=== PATIENT | male | born 1985 | race Caucasian/White ===

== ENCOUNTER → 2023-07-30 16:05 | Outpatient (CLI) | payer OTHER, SELFPAY ==
--- NOTE | 2023-07-30 16:08 | DI.MRI.S_ITS ---
PROCEDURE: MR KNEE RT WO CON INDICATIONS: Pain in right knee TECHNIQUE: Noncontrast sagittal PD fast spin echo and T2 fast spin echo with fat saturation, sagittal 3-D FLASH with fat saturation; coronal T1 spin echo and PD fast spin echo with fat saturation, and axial PD fast spin echo with fat saturation through the knee. COMPARISON: None. FINDINGS: Image quality: Excellent. Menisci: The medial and lateral menisci demonstrate normal morphology and internal signal. The meniscal root ligaments appear intact. Cruciate ligaments: Intrasubstance T2 hyperintense signal within mildly thickened ACL is seen. The PCL is intact. Medial structures: The medial collateral ligament appears intact. Visualized portions of the pes anserinus tendons appear normal. No abnormal bursal fluid. Lateral structures: The lateral collateral ligament, long and short heads of the biceps femoris tendon appear intact. The popliteus tendon appears normal. Iliotibial band appears normal. Anterior structures: The quadriceps and patellar tendons appear intact. Patellar alignment is normal. No femoral trochlear dysplasia or ventral trochlear prominence. No edema in the infrapatellar fat pad. Bones and cartilage: No bone marrow contusions or fractures. The cartilage of the medial and lateral femorotibial compartments appears normal in thickness. Low-grade chondromalacia in lateral facet of patella cartilage is seen. Joint space: There is small knee joint fluid. No Chin's cyst. Normal appearing synovial plicae are incidentally noted. IMPRESSION: 1. Low-grade ACL sprain. No ACL rupture. The PCL is intact. 2. 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 No fracture or dislocation. 3. Small joint effusion, no loose bodies. 4. No evidence of focal meniscal tear. Dictated by: Tarik Hart M.D. on 07/31/2023 at 13:46 Approved by: Tarik Hart M.D. on 07/31/2023 at 13:48
== END ==
LOC: MRI 16:06
PROVIDERS: Referring Provider Nurse Practitioner Family; Visit Provider Nurse Practitioner Family
DX: S83.511A Sprain of anterior cruciate ligament of right knee, initial encounter (principal); M22.41 Chondromalacia patellae, right knee; M25.461 Effusion, right knee; M25.561 Pain in right knee
CPT/HCPCS: 73721